=== PATIENT | male | born 1980 | race Hispanic/Latino ===

== ENCOUNTER 2022-03-23 11:38 | Emergency (ER) | payer SELFPAY ==
[~2022-03-23] VITALS: Ht 162.6 cm; Wt 90.7 kg
[2022-03-23] MEDS: KETOROLAC TROMETHAMINE 30 MG/ML VIAL IM STA ×2 (12:10→13:02)
[2022-03-23] MEDS ORDERED: KETOROLAC TROMETHAMINE 60 MG/2 ML VIAL ONE (12:25)
== END 2022-03-23 16:01 | disposition home or self-care (01) ==
LOC: ER 11:51
DX: R51.9 Headache, unspecified (principal); I10 Essential (primary) hypertension; F41.0 Panic disorder [episodic paroxysmal anxiety]; Z20.822 Contact with and (suspected) exposure to COVID-19
CPT/HCPCS: 99282; J1885; U0002